=== PATIENT | male | born 1940 | race Caucasian/White ===

== ENCOUNTER 2022-12-24 12:03 | Emergency (ER) | payer OTHER ==
[~2022-12-24] VITALS: Ht 177.8 cm; Wt 68.0 kg
[2022-12-24 12:19] VITALS: BP_SYST 155
[2022-12-24 12:54] LABS: BASOPHILS # (AUTO) 0.1 K/uL (0.0-0.2); BASOPHILS % (AUTO) 0.8 % (0.0-2.0); EOSINOPHILS # (AUTO) 0.2 K/uL (0.0-0.4); EOSINOPHILS % (AUTO) 2.3 % (0.0-4.0); HEMATOCRIT 34.9 % (36-54); HEMOGLOBIN 11.9 g/dL (14.0-18.0); LYMPHOCYTES # (AUTO) 1.1 K/uL (1.0-5.5); LYMPHOCYTES % (AUTO) 11.7 % (20.5-51.5); MEAN CORPUSCULAR HEMOGLOBIN 31 pg (27-31); MEAN CORPUSCULAR HGB CONC 34 % (32-36); MEAN CORPUSCULAR VOLUME 92 fL (79.0-98.0); MONOCYTES # (AUTO) 0.9 K/uL (0.0-1.0); MONOCYTES % (AUTO) 10.5 % (1.7-9.3); NEUTROPHILS # (AUTO) 6.7 K/uL (1.8-7.7); NEUTROPHILS % (AUTO) 74.7 % (40.0-70.0); PLATELET COUNT (AUTO) 193 K/uL (130-430); RED BLOOD CELL COUNT(AUTO) 3.81 MIL/uL (4.2-6.2); RED CELL DISTRIBUTION WIDTH 14.2 % (9.0-15.0)
[2022-12-24 13:02] LABS: ANION GAP 6 (5-15); CALCIUM 8.7 mg/dL (8.4-11.0); CHLORIDE 102 mmol/L (98-107); CREATININE 0.76 mg/dL (0.55-1.30); GLUCOSE 93 mg/dL (70-99); UREA NITROGEN, BLOOD 18 mg/dL (8-21)
[2022-12-24 13:08] LABS: ALANINE AMINOTRANSFERASE 26 U/L (12-78); ALBUMIN 3.4 g/dL (3.4-4.8); ASPARTATE AMINOTRANSFERASE 23 U/L (10-37); TOTAL BILIRUBIN 0.4 mg/dL (0.0-1.0)
[2022-12-24] MEDS ORDERED: CIPR-260 PO (13:19)
[2022-12-24 13:43] LABS: BILIRUBIN,URINE NEGATIVE (NEGATIVE); BLOOD, URINE 3+ (NEGATIVE); CLARITY/URINE SL CLOUDY (CLEAR); GLUCOSE,URINE NEGATIVE (NEGATIVE); KETONES,URINE NEGATIVE (NEGATIVE); LEUKOCYTE ESTERASE ,URINE NEGATIVE (NEGATIVE); NITRITE, URINE NEGATIVE (NEGATIVE); PH,URINE 5.5 (5.0-8.0); PROTEIN URINE NEGATIVE (NEGATIVE); UROBILINOGEN,URINE 0.2 (0.2-1.0)
[2022-12-24 13:46] LABS: COLOR,URINE RED (YELLOW)
[2022-12-24 13:53] LABS: BACTERIA,URINE None Seen /HPF (None Seen); CALCIUM OXALATE CRYSTALS,UR 0-10 /HPF (None Seen); RBC,URINE >100 /HPF (0-3); WBC,URINE 0-3 /HPF (0-3)
== END 2022-12-24 13:36 | disposition home or self-care (01) ==
LOC: SED 12:03
DX: R31.9 Hematuria, unspecified (principal); Z79.899 Other long term (current) drug therapy
CPT/HCPCS: 36415; 80053; 81000; 85025; 86886; 86900; 86901; 87086; 99283

== ENCOUNTER 2023-02-07 21:37 | Emergency (ER) | payer OTHER ==
[~2023-02-07] VITALS: Ht 177.8 cm; Wt 62.6 kg
[~2023-02-07 21:37] MED LIST: CIPR-260 PO
--- NOTE | 2023-02-07 22:04 | NUR ---
Patient to ER bed 4 to gown for evaluation. Side rails up. Report given to BECKY CROWE(REG).
[2023-02-07 22:05] VITALS: BP_SYST 113
--- NOTE | 2023-02-07 22:15 | NUR ---
DR LOMBARDI TO [facility] PT
--- NOTE | 2023-02-07 22:40 | NUR ---
NEW FONTANA WITH LEG BAG REPLACED FOR PT. PT TOLERATED WELL. PT DISPLAYED RETURN DEMO FOR LEG BAG
[2023-02-07 23:11] LABS: BILIRUBIN,URINE NEGATIVE (NEGATIVE); BLOOD, URINE NEGATIVE (NEGATIVE); COLOR,URINE YELLOW (YELLOW); GLUCOSE,URINE NEGATIVE (NEGATIVE); KETONES,URINE NEGATIVE (NEGATIVE); LEUKOCYTE ESTERASE ,URINE 1+ (NEGATIVE); NITRITE, URINE NEGATIVE (NEGATIVE); PROTEIN URINE 1+ (NEGATIVE); UROBILINOGEN,URINE 0.2 (0.2-1.0)
[2023-02-07 23:13] LABS: CLARITY/URINE SLIGHTLY HAZY (CLEAR)
--- NOTE | 2023-02-07 23:20 | NUR ---
Patient given written and verbal discharge instructions and verbalizes understanding. ER MD discussed with patient the results and treatment provided. Patient in stable condition. ID arm band removed. IV catheter removed intact and dressing applied, no active bleeding. Patient educated on pain management and to follow up with PMD. Pain Scale 0. Opportunity for questions provided and answered. Medication side effect fact sheet provided.
[2023-02-07 23:51] LABS: RBC,URINE 0-3 /HPF (0-3)
[2023-02-07 23:53] LABS: BACTERIA,URINE MODERATE /HPF (None Seen)
== END 2023-02-07 23:20 | disposition home or self-care (01) ==
LOC: SED 21:37
DX: Z46.6 Encounter for fitting and adjustment of urinary device (principal); Z79.899 Other long term (current) drug therapy
CPT/HCPCS: 81000; 87086; 99284

== ENCOUNTER 2024-06-29 18:36 | Emergency (ER) | payer OTHER ==
[~2024-06-29] VITALS: Ht 182.9 cm; Wt 62.6 kg
[2024-06-29 18:45] VITALS: BP_SYST 127; PULSE 68; RESP 15; TEMP 97.6; O2SAT 95
[2024-06-29 20:11] LABS: CLARITY/URINE TURBID (CLEAR); COLOR,URINE YELLOW (YELLOW); PROTEIN URINE 3+ (NEGATIVE)
[2024-06-29 20:12] LABS: BILIRUBIN,URINE NEGATIVE (NEGATIVE); BLOOD, URINE 1+ (NEGATIVE); GLUCOSE,URINE NEGATIVE (NEGATIVE); KETONES,URINE NEGATIVE (NEGATIVE); LEUKOCYTE ESTERASE ,URINE 3+ (NEGATIVE); NITRITE, URINE POSITIVE (NEGATIVE); UROBILINOGEN,URINE 0.2 (0.2-1.0)
[2024-06-29 20:13] LABS: BACTERIA,URINE MANY /HPF (None Seen); RBC,URINE 20-50 /HPF (0-3); WBC,URINE >100 /HPF (0-3)
[2024-06-29 20:16] LABS: MUCUS,URINE None Seen /LPF (None Seen); URINE AMORPHOUS PHOSPHATES 3+ /HPF (None Seen)
[2024-06-29] MEDS ORDERED: MOM PO (20:29)
[2024-06-29] MEDS ORDERED: NITR-85 PO (20:29)
[2024-06-29] MEDS: cefTRIAXone 1 GM in LIDOCAINE 1%, 20 ML MDV 2.1 ML IM ONE (20:41)
[2024-06-29 20:42] VITALS: BP_SYST 127; PULSE 68; RESP 15; TEMP 97.6; O2SAT 95
== END 2024-06-29 20:42 | disposition home or self-care (01) ==
LOC: SED 18:36
DX: N39.0 Urinary tract infection, site not specified (principal); K59.00 Constipation, unspecified; T83.091A Other mechanical complication of indwelling urethral catheter, initial encounter; Z79.899 Other long term (current) drug therapy; Z79.2 Long term (current) use of antibiotics; Y84.8 Other medical procedures as the cause of abnormal reaction of the patient, or of later complication, without mention of misadventure at the time of the procedure; Y92.89 Other specified places as the place of occurrence of the external cause
CPT/HCPCS: 99284; 81001; 87086; 87186; 51702; 96372; J0696; J2001; 81000; 81015

== ENCOUNTER 2024-07-20 11:45 | Emergency (ER) | payer OTHER ==
[~2024-07-20] VITALS: Ht 180.3 cm; Wt 59.0 kg
[~2024-07-20 11:45] MED LIST changes: +MOM PO; +NITR-85 PO
[2024-07-20 12:20] VITALS: BP_SYST 137; PULSE 55; RESP 18; TEMP 97.6; O2SAT 95
[2024-07-20] MEDS ORDERED: ACET-2634 PO (17:20)
[2024-07-20] MEDS ORDERED: LIDOINT TP (17:20)
[2024-07-20 17:59] VITALS: BP_SYST 132; PULSE 55; RESP 18; TEMP 97.6; O2SAT 95
== END 2024-07-20 18:10 | disposition home or self-care (01) ==
LOC: SED 11:45
DX: S93.401A Sprain of unspecified ligament of right ankle, initial encounter (principal); X50.1XXA Overexertion from prolonged static or awkward postures, initial encounter; Y93.01 Activity, walking, marching and hiking; Y92.89 Other specified places as the place of occurrence of the external cause; Y99.8 Other external cause status
CPT/HCPCS: 73590; 93971; 99284